=== PATIENT | male | born 1990 | race African-American/Black ===

== ENCOUNTER 2022-05-07 10:14 | Emergency (ER) | payer OTHER ==
[~2022-05-07] VITALS: Ht 193 cm; Wt 130.0 kg
[2022-05-07] MEDS ORDERED: CEPH-510 PO (12:41)
[2022-05-07 13:11] VITALS: BP 168/84
== END 2022-05-07 13:12 | disposition home or self-care (01) ==
LOC: ER 10:14
DX: S71.111A Laceration without foreign body, right thigh, initial encounter (principal); S31.811A Laceration without foreign body of right buttock, initial encounter; S21.211A Laceration without foreign body of right back wall of thorax without penetration into thoracic cavity, initial encounter; Z79.899 Other long term (current) drug therapy; Y04.2XXA Assault by strike against or bumped into by another person, initial encounter; Y93.89 Activity, other specified; Y92.89 Other specified places as the place of occurrence of the external cause; Y99.8 Other external cause status